=== PATIENT | female | born 1995 | race Caucasian/White ===

== ENCOUNTER 2020-10-29 13:37 | Emergency (ER) | payer OTHER ==
[~2020-10-29] VITALS: Ht 162.6 cm; Wt 59.0 kg
[2020-10-29 13:53] VITALS: BP 111/71
--- NOTE | 2020-10-29 13:57 | NUR ---
ED Nurse Note:pt brought in by ems. pt was found sleeping in someone's house and police called. pt stated her stomach hurt and was brought here. pt stated she has colitis and doesn't take meds for it. pt stated that she takes steriods. at the bedside and pt alannah up her fist and said, "get the fuck out of here Francisco" aiming at this RN.pt also using the word "nigger" requested pt not to use that kind of language. pt stated "ok". pt said she didn't want an iv and blood drawn but then agreed. she was stating that fentanyl is her drug of choice and it's easy to get on the streets.
--- NOTE | 2020-10-29 14:14 | Emergency Room Report ---
History of Present Illness General Chief Complaint: Abdominal Pain Source: Patient Present Illness HPI Disclaimer: Please note that this report is being documented using DRAGON technology. This can lead to erroneous entry secondary to incorrect interpretation by the dictating instrument. HPI: 25-year-old female presents by EMS. Originally complained of abdominal pain and bloody bowel movements. She now states that she was brought to the ER for evaluation because EMS found her in an abandoned building. She denies nausea or vomiting. She does report some abdominal cramping and history of ulcerative colitis. She reports she has had bloody bowel movements over the past few days. She does not take medicine for ulcerative colitis. No prior history of abdominal surgery. Denies dysuria hematuria. Patient does not get regular periods because of her Nexplanon implant. Reports recent fentanyl use and other substances. Denies fever or chills. Denies chest pain, cough or shortness of breath. No known sick contacts. PMH: Ulcerative colitis, substance abuse PSH: Denied Allergies: None reported Social Hx: Substance abuse Allergies: Coded Allergies: No Known Allergies (Unverified , 10/29/20) COVID-19 Screening Contact w/high risk pt: No Experienced COVID-19 symptoms?: No COVID-19 Testing performed MEDICAL REFERRAL COORDINATOR: No Patient History Now: No Nursing Documentation-PMH History Of Psychiatric Problem: Yes - adhd Review of Systems All Other Systems: negative except mentioned in HPI Physical Exam Vital Signs Date Time Temp Pulse Resp B/P (MAP) Pulse Ox O2 Delivery O2 Flow Rate FiO2 10/29/20 13:37 97.9 98 18 136/82 (100) 99 Room Air General: Awake and alert, no acute distress HEENT: NC/AT. EOMI. Cardiovascular: RRR. S1 and S2 normal. No murmur appreciated Resp: Normal work of breathing. No cough, wheezing or crackles appreciated Abdomen: Abdomen is soft, nondistended. Mild tenderness in the periumbilical region. No guarding. No rigidity. No rebound. Negative Ravi's. Skin: Intact. No abrasions, laceration or rash over the exposed skin MSK: Normal tone and bulk. Moving all extremities. No obvious deformity. Neuro: Awake and alert. Mentating appropriately. Medical Decision Making Diagnostic Impression: Primary Impression: Anemia Additional Impressions: History of ulcerative colitis Eloped from emergency department ER Course 25-year-old female with history of ulcerative colitis presenting for evaluation of abdominal cramping and intermittent bloody stools for the past 2 days. Concern for UC flare, gastritis, gastroenteritis, upper GI bleed, lower GI bleed, pancreatitis, cholecystitis, substance abuse, dehydration, kidney injury, UTI, pyelonephritis, among others. Labs show mildly elevated ESR and CRP which would be consistent with mild ulcerative colitis flare. Lipase negative. CBC shows mild anemia. Patient declined to give urine. She states she would drink more water and then provide urine but then eloped from the emergency department. Laboratory Tests Test 10/29/20 13:58 White Blood Count 6.2 K/UL (4.8-10.8) Red Blood Count 3.63 M/UL (4.20-5.40) L Hemoglobin 9.1 G/DL (12.0-16.0) L Hematocrit 30.9 % (37.0-47.0) L Mean Corpuscular Volume 85 FL (80-99) Mean Corpuscular Hemoglobin 25.0 PG (27.0-31.0) L Mean Corpuscular Hemoglobin Concent 29.3 G/DL (32.0-36.0) L Red Cell Distribution Width 20.5 % (11.6-14.8) H Platelet Count 452 K/UL (150-450) H Mean Platelet Volume 4.9 FL (6.5-10.1) L Neutrophils (%) (Auto) 68.1 % (45.0-75.0) Lymphocytes (%) (Auto) 18.9 % (20.0-45.0) L Monocytes (%) (Auto) 9.8 % (1.0-10.0) Eosinophils (%) (Auto) 2.3 % (0.0-3.0) Basophils (%) (Auto) 1.0 % (0.0-2.0) Erythrocyte Sedimentation Rate 28 MM/HR (0-20) H Sodium Level 143 MMOL/L (136-145) Potassium Level 3.3 MMOL/L (3.5-5.1) L Chloride Level 107 MMOL/L (98-107) Carbon Dioxide Level 30 MMOL/L (21-32) Anion Gap 6 mmol/L (5-15) Blood Urea Nitrogen 2 mg/dL (7-18) L Creatinine 0.4 MG/DL (0.55-1.30) L Estimated Glomerular Filtration Rate > 60 mL/min (>60) Glucose Level 112 MG/DL (74-106) H Calcium Level 8.0 MG/DL (8.5-10.1) L Total Bilirubin 0.2 MG/DL (0.2-1.0) Aspartate Amino Transferase (AST) 18 U/L (15-37) Alanine Aminotransferase (ALT) 18 U/L (12-78) Alkaline Phosphatase 83 U/L (46-116) C-Reactive Protein, Quantitative 3.7 mg/dL (0.00-0.90) H Total Protein 6.2 G/DL (6.4-8.2) L Albumin 2.6 G/DL (3.4-5.0) L Globulin 3.6 g/dL Albumin/Globulin Ratio 0.7 (1.0-2.7) L Lipase 84 U/L (73-393) Salicylates Level 1.2 ug/mL (2.8-20) L Acetaminophen Level < 2 MCG/ML (10-30) L Serum Alcohol < 3 mg/dL Last Vital Signs Date Time Temp Pulse Resp B/P (MAP) Pulse Ox O2 Delivery O2 Flow Rate FiO2 10/29/20 13:57 Room Air 10/29/20 13:53 89 20 111/71 98 10/29/20 13:37 97.9 Disposition: ELOPED Condition: Stable Referrals: David VALLADARESREFERRING (PCP) Jono Benson MD Oct 29, 2020 14:14
[2020-10-29 14:21] LABS: EOSINOPHILS % (AUTO) 2.3 % (0.0-3.0); HEMATOCRIT 30.9 % (37.0-47.0); HEMOGLOBIN 9.1 G/DL (12.0-16.0); LYMPHOCYTES % (AUTO) 18.9 % (20.0-45.0); MEAN CORPUSCULAR VOLUME 85 FL (80-99); MONOCYTES % (AUTO) 9.8 % (1.0-10.0); NEUTROPHILS % (AUTO) 68.1 % (45.0-75.0); PLATELET COUNT 452 K/UL (150-450); RED BLOOD COUNT 3.63 M/UL (4.20-5.40); RED CELL DISTRIBUTION WIDTH 20.5 % (11.6-14.8); WHITE BLOOD COUNT 6.2 K/UL (4.8-10.8)
[2020-10-29 14:33] LABS: ANION GAP 6 mmol/L (5-15); BLOOD UREA NITROGEN 2 mg/dL (7-18); CARBON DIOXIDE 30 MMOL/L (21-32); CHLORIDE 107 MMOL/L (98-107); CREATININE 0.4 MG/DL (0.55-1.30); POTASSIUM 3.3 MMOL/L (3.5-5.1); SODIUM 143 MMOL/L (136-145)
[2020-10-29 14:37] LABS: ALANINE AMINOTRANSFERASE 18 U/L (12-78); ALBUMIN 2.6 G/DL (3.4-5.0); ALBUMIN/GLOBULIN RATIO 0.7 (1.0-2.7); ALKALINE PHOSPHATASE 83 U/L (46-116); ASPARTATE AMINO TRANSFERASE 18 U/L (15-37); BILIRUBIN,TOTAL 0.2 MG/DL (0.2-1.0)
[2020-10-29 15:12] VITALS: BP 105/64
[2020-10-29 16:08] VITALS: BP 120/80
--- NOTE | 2020-10-29 16:10 | NUR ---
patient is very upset for being in er states she doesnot want to be here dr espnial notified
--- NOTE | 2020-10-29 16:11 | NUR ---
patient eloped from er md has been notified
== END 2020-10-29 16:12 | disposition left against medical advice (07) ==
LOC: EDBD 13:37 → EMR 14:05
DX: D64.9 Anemia, unspecified (principal); K51.90 Ulcerative colitis, unspecified, without complications
CPT/HCPCS: 36415; 80053; 83690; 85025; 85651; 86140; G0480; G0481; Z7502; 99284

== ENCOUNTER 2020-10-30 12:44 | Emergency (ER) | payer OTHER ==
[~2020-10-30] VITALS: Ht 165.1 cm; Wt 63.5 kg
[2020-10-30 13:18] VITALS: BP 103/65
--- NOTE | 2020-10-30 13:23 | NUR ---
PER PATIENT SHE CALLED 911 TO COME TO ER FOR FOOD NO COMPLAINTS
--- NOTE | 2020-11-04 18:06 | Emergency Room Report ---
History of Present Illness General Chief Complaint: Abdominal Pain Source: Patient Present Illness HPI 25-year-old female presents for evaluation. Stated she was having abdominal pain. Patient denies abdominal pain to me. States she has ulcerative colitis. States that she feels hungry. Was seen here few days ago. States she needs food and clothing as well. Is homeless. Denies fevers or chills. Denies any diarrhea. Denies any nausea or vomiting. No other aggravating relieving factors. Denies any other associated symptoms Allergies: Coded Allergies: No Known Allergies (Unverified , 10/29/20) COVID-19 Screening Contact w/high risk pt: No Experienced COVID-19 symptoms?: No COVID-19 Testing performed STEAM TABLE WORKER: No Patient History Past Medical History: other - Ulcerative colitis Past Surgical History: none Pertinent Family History: none Social History: Denies: smoking, alcohol use, drug use Now: No Immunizations: UTD Reviewed Nursing Documentation: PMH: Agreed; PSxH: Agreed Nursing Documentation-PMH Past Medical History: No History, Except For Hx Asthma: No - ULCERATIVE COLITIS Review of Systems All Other Systems: negative except mentioned in HPI Physical Exam Sp02 EP Interpretation: reviewed, normal General Appearance: no apparent distress, alert, GCS 15, non-toxic Head: normocephalic, atraumatic Eyes: bilateral eye normal inspection, bilateral eye PERRL ENT: hearing grossly normal, normal pharynx, no angioedema, normal voice Neck: full range of motion, supple/symm/no masses Respiratory: chest non-tender, lungs clear, normal breath sounds, speaking full sentences Cardiovascular #1: regular rate, rhythm, no edema Cardiovascular #2: 2+ carotid (R), 2+ carotid (L), 2+ radial (R), 2+ radial (L), 2+ dorsalis pedis (R), 2+ dorsalis pedis (L) Gastrointestinal: normal bowel sounds, non tender, soft, non-distended, no guarding, no rebound Rectal: deferred Genitourinary: normal inspection, no CVA tenderness Musculoskeletal: back normal, normal range of motion, gait/station normal, non- tender Neurologic: alert, motor strength/tone normal, oriented x3, sensory intact, responsive, speech normal Psychiatric: judgement/insight normal, memory normal, mood/affect normal, no suicidal/homicidal ideation Reflexes: 3+ bicep (R), 3+ bicep (L), 3+ tricep (R), 3+ tricep (L), 3+ knee (R), 3+ knee (L) Lymphatic: no adenopathy Medical Decision Making Homeless Attestation I, The treating physician Dr. Matta, have assessed and agrees that patient is medically stable for discharge to an outpatient disposition. Diagnostic Impression: Primary Impression: History of ulcerative colitis ER Course Patient presents with a history of ulcerative colitis. Denies any pain at this time. Is requesting food, clothing. Patient was seen a few days ago for similar history of ulcerative colitis. Had work-up which was unremarkable. Stable vitals. Abdomen unremarkable. Homeless checklist completed. Safe for discharge close outpatient follow-up Status: improved Disposition: OTH-HOMELESS Condition: Stable Referrals: NON PHYSICIAN (PCP) David Gonzalez Comp. [facility] Patient Instructions: Ulcerative Colitis, Adult Chris Matta MD Nov 04, 2020 18:06
== END 2020-10-30 13:25 | disposition other institution (70) ==
LOC: EDBD 12:44 → EMR 13:20
DX: R10.9 Unspecified abdominal pain (principal); K51.90 Ulcerative colitis, unspecified, without complications; Z59.0 Homelessness
CPT/HCPCS: 99281